=== PATIENT | male | born 1980 | race African-American/Black ===

== ENCOUNTER 2021-01-24 11:11 | Emergency (ER) | payer MEDICAID ==
[~2021-01-24] VITALS: Ht 182.9 cm; Wt 84.0 kg
[2021-01-24 11:49] LABS: BASOPHILS % 0.8 % (0.0-2.0); EOSINOPHILS % 1.4 % (0.0-5.0); HEMATOCRIT. 35.4 % (42.0-52.0); HEMOGLOBIN. 11.6 g/dL (14.0-18.0); LYMPHOCYTES % 13.3 % (20.0-50.0); MEAN CORPUSCULAR HEMOGLOBIN 23.4 pg (28.0-32.0); MEAN CORPUSCULAR VOLUME 71.4 fL (80.0-94.0); MEAN PLATELET VOLUME 7.6 fl (7.4-10.4); MONOCYTES % 13.9 % (2.0-8.0); NEUTROPHILS % 70.6 % (40.0-76.0); PLATELET 139 x1000/uL (130-400); RED BLOOD CELL COUNT 4.96 mill/uL (4.7-6.1); RED CELL DISTRIBUTION WIDTH 17.4 % (11.6-14.6)
[2021-01-24 11:55] LABS: CHLORIDE 107 mEq/L (98-107)
[2021-01-24] MEDS ORDERED: DEXTROSE 50% WATER 50ML SYRINGE IV ONE (12:00)
[2021-01-24] MEDS ORDERED: DEXT 5%/0.9% NACL 500 ML IV ONE (12:00)
[2021-01-24] MEDS ORDERED: DEXT 5%/0.9% NACL 1,000 ML IV ONE (12:30)
[2021-01-24] MEDS ORDERED: ASPIRIN 325MG EC TABLET PO ONE (13:30)
[2021-01-24 14:56] LABS: CLARITY URINE CLEAR (CLEAR); COLOR URINE YELLOW (YELLOW); KETONES URINE NEGATIVE (NEGATIVE); LEUKOCYTE ESTERASE URINE NEGATIVE (NEGATIVE); NITRITE URINE NEGATIVE (NEGATIVE); OCCULT BLOOD URINE NEGATIVE (NEGATIVE); PROTEIN URINE TRACE (NEGATIVE); UROBILINOGEN URINE 0.2 E.U./dL (0.2-1.0)
[2021-01-24] MEDS ORDERED: ONDANSETRON HCL 4MG/2ML INJ IV ONE (15:00)
[2021-01-24] MEDS ORDERED: MORPHINE SULFATE 2 MG/ML CPJ (NOT FOR IM USE) IV ONE (15:00)
[2021-01-24 18:25] VITALS: BP 122/68
== END 2021-01-24 18:35 | disposition home or self-care (01) ==
LOC: ER 11:11 → CANBEDREQ 16:59 → ER 18:35
DX: E11.649 Type 2 diabetes mellitus with hypoglycemia without coma (principal); E11.22 Type 2 diabetes mellitus with diabetic chronic kidney disease; G93.41 Metabolic encephalopathy; N18.2 Chronic kidney disease, stage 2 (mild); M45.9 Ankylosing spondylitis of unspecified sites in spine; Z79.4 Long term (current) use of insulin; Z94.1 Heart transplant status
CPT/HCPCS: 36415; 80048; 80076; 81003; 82962; 84484; 85025; 96361; 96374; 96375; 99285; J2270; J2405; J7042; Z7610

== ENCOUNTER 2021-05-30 06:18 | Emergency (ER) | payer MEDICAID ==
[~2021-05-30] VITALS: Ht 182.9 cm; Wt 66.0 kg
[2021-05-30 08:29] LABS: BASOPHILS % 0.8 % (0.0-2.0); HEMATOCRIT. 43.1 % (42.0-52.0); HEMOGLOBIN. 13.5 g/dL (14.0-18.0); LYMPHOCYTES % 10.3 % (20.0-50.0); MEAN CORPUSCULAR HEMOGLOBIN 24.2 pg (28.0-32.0); MEAN CORPUSCULAR VOLUME 77.4 fL (80.0-94.0); MEAN PLATELET VOLUME 7.8 fl (7.4-10.4); MONOCYTES % 10.2 % (2.0-8.0); NEUTROPHILS % 77.7 % (40.0-76.0); PLATELET 237 x1000/uL (130-400); RED BLOOD CELL COUNT 5.58 mill/uL (4.7-6.1); RED CELL DISTRIBUTION WIDTH 20.2 % (11.6-14.6)
[2021-05-30 08:54] LABS: CHLORIDE 113 mEq/L (98-107)
[2021-05-30 11:01] VITALS: BP 147/102
== END 2021-05-30 11:01 | disposition home or self-care (01) ==
LOC: ER 06:18
DX: E11.649 Type 2 diabetes mellitus with hypoglycemia without coma (principal); R94.31 Abnormal electrocardiogram [ECG] [EKG]; Z79.4 Long term (current) use of insulin
CPT/HCPCS: 36415; 71045; 80053; 82962; 84484; 85025; 93005; 99285

== ENCOUNTER 2025-08-10 20:21 | Inpatient (IN) | payer MEDICARE, MEDICAID ==
[~2025-08-10] VITALS: Ht 172.7 cm; Wt 85.3 kg
[~2025-08-10 20:21] MED LIST: APIX5TAB PO; COR25 MT; INSU100I28 SQ; LOPE2TAB26 MT; METH-653 MT; PANT20TA17 PO; PRAV20TA57 PO; TACR1CAP PO
[2025-08-10 20:23] VITALS: O2SAT 97
[2025-08-10 21:26] LABS: BASOPHILS % 1.2 % (0.0-2.0); EOSINOPHILS % 2.6 % (0.0-5.0); HEMATOCRIT. 31.0 % (42.0-52.0); HEMOGLOBIN. 9.8 g/dL (14.0-18.0); LYMPHOCYTES % 14.8 % (20.0-50.0); MEAN PLATELET VOLUME 8.1 fl (7.4-10.4); MONOCYTES % 12.5 % (2.0-8.0); NEUTROPHILS % 68.9 % (40.0-76.0); PLATELET 140 x1000/uL (130-400); RED BLOOD CELL COUNT 3.72 mill/uL (4.7-6.1); RED CELL DISTRIBUTION WIDTH 17.7 % (11.6-14.6)
[2025-08-10 21:38] LABS: PROTEIN TOTAL 7.1 g/dL (6.0-8.3); UREA NITROGEN BLOOD 70 mg/dL (9-23)
[2025-08-10 21:39] LABS: ASPARTATE AMINOTRANSFERASE 16 IU/L (<34)
[2025-08-10 21:40] LABS: BILIRUBIN DIRECT 0.1 mg/dL (<=3.0); BILIRUBIN TOTAL 0.3 mg/dL (0.1-1.0)
[2025-08-10] MEDS: INSULIN REGULAR (HUMULIN R) 1000UNITS/10ML VIAL IV ONE ×2 (21:40→22:45)
[2025-08-10] MEDS: HYDROMORPHONE HCL/PF 2MG/ML INJ IV ONE (21:42)
[2025-08-10] MEDS: METOCLOPRAMIDE HCL 10MG/2ML VIAL IV ONE (21:42)
[2025-08-10] MEDS: SODIUM CHLORIDE 0.9% 1,000 ML IV ONE (21:42)
[2025-08-10 21:56] LABS: CREATININE 10.5 mg/dL (0.6-1.3); TROPONIN I HIGH SENSITIVITY 60 ng/L (3.0-53)
[2025-08-10 22:00] LABS: BG DEOXYHEMOGLOBIN 21.2 % (0.0-5.0)
[2025-08-11] MEDS ORDERED: CLONIDINE 0.1MG TABLET PO PRN (02:30)
[2025-08-11] MEDS ORDERED: ACETAMINOPHEN 325MG TABLET PO PRN (02:30)
[2025-08-11] MEDS ORDERED: DOCUSATE SODIUM 100MG CAPSULE PO PRN (02:30)
[2025-08-11] MEDS ORDERED: IPRATROPIUM/ALBUTEROL 0.5-3(2.5)MG/3ML NEB HHN PRN (02:30)
[2025-08-11] MEDS ORDERED: DEXTROSE 50% WATER 50ML SYRINGE IV PRN (02:30)
[2025-08-11] MEDS ORDERED: NALOXONE HCL 0.4MG/ML VIAL IV PRN (02:45)
[2025-08-11 03:24] VITALS: BP 134/95; PULSE 90; RESP 18; TEMP 36.6404
[2025-08-11 04:00] VITALS: BP 138/64; PULSE 83; RESP 18; TEMP 36.9; O2SAT 99
[2025-08-11] MEDS: DOXYCYCLINE 100MG/100ML 100 ML IV SCH (05:39)
[2025-08-11] MEDS: LOPERAMIDE HCL 2MG CAPSULE PO SCH (05:40)
[2025-08-11] MEDS ORDERED: FOLI0.8T53 MT (06:34)
[2025-08-11] MEDS ORDERED: CINA30 PO (06:35)
[2025-08-11] MEDS ORDERED: SEVE0.8P MT (06:36)
[2025-08-11] MEDS ORDERED: METH-653 GT (06:38)
[2025-08-11] MEDS ORDERED: ZOLP5TAB2 MT (06:39)
[2025-08-11] MEDS ORDERED: OXYC-662 MT (06:39)
[2025-08-11] MEDS: BLOOD SUGAR DIAGNOSTIC STRIP TEST SCH (07:20)
[2025-08-11] MEDS: INSULIN LISPRO 100 UNITS/ML SUBCUT SCH ×2 (07:20→10:08)
[2025-08-11 08:00] VITALS: BP 123/87; PULSE 90; RESP 17; TEMP 36; O2SAT 98
[2025-08-11] MEDS ORDERED: ATORVASTATIN CALCIUM 10MG TABLET PO SCH (09:00)
[2025-08-11] MEDS ORDERED: DOXYCYCLINE HYCLATE 100 MG/VIAL IV SCH (09:00)
[2025-08-11] MEDS ORDERED: TACROLIMUS 1MG CAPSULE PO SCH ×2 (09:00)
[2025-08-11] MEDS: PANTOPRAZOLE SODIUM 40 MG/VIAL IV SCH (09:50)
[2025-08-11] MEDS: CARVEDILOL 12.5MG TABLET PO SCH (09:54)
[2025-08-11] MEDS: TACROLIMUS 1MG CAPSULE PO SCH (09:55)
[2025-08-11] MEDS: MULTIVITAMINS,THER W-MINERALS TABLET PO SCH (09:55)
[2025-08-11] MEDS: THIAMINE HCL 100MG TABLET PO SCH (09:55)
[2025-08-11] MEDS: FOLIC ACID 1MG TABLET PO SCH (09:56)
[2025-08-11] MEDS: FERROUS SULFATE 325MG TABLET PO SCH (09:56)
[2025-08-11] MEDS: METHOCARBAMOL 500MG TABLET PO SCH (09:56)
[2025-08-11] MEDS: LOSARTAN 50 MG TABLET PO SCH (09:57)
[2025-08-11] MEDS: APIXABAN 5 MG TABLET PO SCH (09:57)
[2025-08-11 12:00] VITALS: BP 145/96; PULSE 91; RESP 17; TEMP 35.7; O2SAT 96
[2025-08-11] MEDS: PETROLATUM,WHITE OINTMENT 100GM JAR TOP SCH (14:11)
[2025-08-11 16:00] VITALS: BP 123/81; PULSE 89; RESP 18; TEMP 36.1; O2SAT 100
[2025-08-11 20:00] VITALS: BP 125/87; PULSE 92; RESP 19; TEMP 36.3; O2SAT 97
[2025-08-11] MEDS: ATORVASTATIN CALCIUM 20MG TABLET PO SCH (21:51)
[2025-08-11] MEDS: HYDROCODONE/ACETAMINOPHEN 7.5/325MG TABLET PO PRN (21:52)
[2025-08-11 23:03] LABS: UREA NITROGEN BLOOD 67 mg/dL (9-23)
[2025-08-11 23:04] LABS: CREATININE 11.3 mg/dL (0.6-1.3)
[2025-08-11 23:05] LABS: PHOSPHORUS 5.5 mg/dL (2.5-4.9)
[2025-08-11 23:08] LABS: TROPONIN I HIGH SENSITIVITY 65 ng/L (3.0-53)
[2025-08-11 23:12] LABS: TROPONIN I HIGH SENSITIVITY 75 ng/L (3.0-53)
[2025-08-11] MEDS ORDERED: HYDROCODONE/ACETAMINOPHEN 5/325MG TABLET PO NR (23:30)
[2025-08-11 23:42] LABS: HEPATITIS C AB NON REACTIVE (Neg) (Negative)
[2025-08-12] VITALS (16 sets, daily range): BP systolic 109–166; BP diastolic 75–105; PULSE 78–94; RESP 17–20; TEMP 35.9–36.8; O2SAT 96–100
[2025-08-12] MEDS: INSULIN GLARGINE 100 UNITS/ML SUBCUT SCH (00:57)
[2025-08-12] MEDS: HYDROMORPHONE HCL/PF 2MG/ML INJ IV PRN (02:03)
[2025-08-12 12:15] LABS: BG BASE EXCESS -3.7 mmol/L (-2.0-3.0); BG CARBOXYHEMOGLOBIN 0.4 % (0.5-1.5); BG DEOXYHEMOGLOBIN 3.2 % (0.0-5.0); BG FRACTION INSPIRED OXYGEN 21; BG HCO3 ACT 21.0 mmol/L (21.0-28.0); BG METHEMOGLOBIN 0.3 % (0.5-1.5); BG OXYGEN SATURATION 96.8 % (94.0-98.0); BG OXYHEMOGLOBIN 96.1 % (94.0-98.0); BG PCO2 36.6 mmHg (35.0-48.0); BG PH 7.377 (7.350-7.450); BG PO2 100.1 mmHg (83.0-108.0); BG SAMPLE SITE RIGHT BRACHIAL; BG TOTAL HEMOGLOBIN 9.9 g/dL (13.5-17.5); BG VENT MODE ROOM AIR
[2025-08-12] MEDS: INSULIN LISPRO 100 UNITS/ML SUBCUT SCH (13:54)
[2025-08-12] MEDS ORDERED: INSU100I28 SQ ×2 (15:36→17:33)
[2025-08-12] MEDS ORDERED: PANT20TA17 PO (15:36)
[2025-08-12] MEDS ORDERED: APIX5TAB PO (15:36)
[2025-08-12] MEDS ORDERED: LOSA50TA41 PO (15:36)
[2025-08-12] MEDS ORDERED: COR12 PO (15:36)
[2025-08-12 17:14] LABS: BASOPHILS % 1.3 % (0.0-2.0); EOSINOPHILS % 3.2 % (0.0-5.0); HEMATOCRIT. 27.3 % (42.0-52.0); HEMOGLOBIN. 8.7 g/dL (14.0-18.0); LYMPHOCYTES % 19.8 % (20.0-50.0); MEAN PLATELET VOLUME 8.3 fl (7.4-10.4); MONOCYTES % 10.4 % (2.0-8.0); NEUTROPHILS % 65.3 % (40.0-76.0); PLATELET 129 x1000/uL (130-400); RED BLOOD CELL COUNT 3.29 mill/uL (4.7-6.1); RED CELL DISTRIBUTION WIDTH 17.8 % (11.6-14.6)
[2025-08-12 17:26] LABS: LDL CHOLESTEROL 30 mg/dL (5-100); TRIGLYCERIDE 33 mg/dL (0-150); UREA NITROGEN BLOOD 72 mg/dL (9-23)
[2025-08-12 17:27] LABS: PROTEIN TOTAL 6.7 g/dL (6.0-8.3)
[2025-08-12 17:28] LABS: ASPARTATE AMINOTRANSFERASE 9 IU/L (<34); BILIRUBIN DIRECT 0.1 mg/dL (<=3.0)
[2025-08-12 17:29] LABS: BILIRUBIN TOTAL 0.2 mg/dL (0.1-1.0); CREATININE 12.6 mg/dL (0.6-1.3)
[2025-08-12 17:32] LABS: T4 FREE 1.04 ng/dL (0.89-1.76)
[2025-08-12] MEDS ORDERED: LOSA50TA41 MT (17:33)
[2025-08-12] MEDS ORDERED: APIX5TAB MT (17:33)
[2025-08-12] MEDS ORDERED: PANT20TA17 MT (17:33)
[2025-08-12] MEDS ORDERED: CARV12.545 MT (17:33)
[2025-08-12 17:47] LABS: TROPONIN I HIGH SENSITIVITY 67 ng/L (3.0-53)
[2025-08-12] MEDS: ACETAMINOPHEN 325MG TABLET PO PRN (21:12)
[2025-08-12] MEDS ORDERED: INSULIN GLARGINE 100 UNITS/ML SUBCUT SCH (22:00)
[2025-08-13] MEDS ORDERED: SERTRALINE HCL 25MG TABLET PO SCH (09:00)
== END 2025-08-12 23:50 | disposition home health service (06) | DRG 640 ==
LOC: ER 20:21 → EDBEDREQ 20:54 → 6WST 23:47 → EDBEDREQ 23:48 → ENRESERV 08-11 00:53
PROVIDERS: ADMIT Internal Medicine; ATTEND Internal Medicine
PROC: GZ56ZZZ Individual Psychotherapy, Supportive (ICD-10-PCS; principal; 2025-08-12)
PROC: 5A1D70Z Performance of Urinary Filtration, Intermittent, Less than 6 Hours Per Day (ICD-10-PCS; 2025-08-12)
DX: E86.0 Dehydration (principal); G93.41 Metabolic encephalopathy; I21.A1 Myocardial infarction type 2; N18.6 End stage renal disease; I12.0 Hypertensive chronic kidney disease with stage 5 chronic kidney disease or end stage renal disease; E87.0 Hyperosmolality and hypernatremia; Z94.1 Heart transplant status; F33.1 Major depressive disorder, recurrent, moderate; D63.1 Anemia in chronic kidney disease; Z99.2 Dependence on renal dialysis; Z79.01 Long term (current) use of anticoagulants; E11.65 Type 2 diabetes mellitus with hyperglycemia; M45.9 Ankylosing spondylitis of unspecified sites in spine; Z91.158 Patient's noncompliance with renal dialysis for other reason; E11.22 Type 2 diabetes mellitus with diabetic chronic kidney disease; I48.91 Unspecified atrial fibrillation; E87.5 Hyperkalemia; E78.5 Hyperlipidemia, unspecified; M47.9 Spondylosis, unspecified; B33.24 Viral cardiomyopathy; F41.9 Anxiety disorder, unspecified; Z79.4 Long term (current) use of insulin; Z86.61 Personal history of infections of the central nervous system; Z79.899 Other long term (current) drug therapy; Z86.718 Personal history of other venous thrombosis and embolism; Z95.810 Presence of automatic (implantable) cardiac defibrillator; Z98.1 Arthrodesis status
CPT/HCPCS: 36415; 36600; 71045; 71250; 74176; 80048; 80061; 80076; 80197; 82010; 82040; 82375; 82550; 82803; 82805; 82962; 83036; 83735; 83880; 84100; 84439; 84443; 84481; 84484; 85025; 86705; 87340; 90935; 93005; 93880; 93970; 99285; J1171; J1815; J2470; J2765; J3490; J7030; J7507